=== PATIENT | male | born 1985 | race African-American/Black ===

== ENCOUNTER 2018-12-18 15:06 | Emergency (ER) | payer SELFPAY ==
--- NOTE | 2018-12-18 15:32 | RAD REPORT ---
EXAM DESCRIPTION: RAD - Ankle Right 3 View - 12/18/2018 3:21 pm CLINICAL HISTORY: Right ankle pain status post injury FINDINGS: No dislocation Soft tissue swelling about the lateral malleolus. A vague curvilinear density adjacent to the talus and lateral malleolus may represent a small avulsed fracture fragment
[2018-12-18] MEDS ORDERED: MORPHINE 4 MG/ML SYR ONE (15:51)
[2018-12-18] MEDS ORDERED: ONDANSETRON 4 MG/2 ML VIAL ONE (15:51)
[2018-12-18] MEDS ORDERED: KETOROLAC 30 MG/ML INJ ONE (15:51)
--- NOTE | 2018-12-18 15:56 | ER ---
Nurse's Notes [facility] Name: Miguel Mark Age: 33 yrs Sex: Male : 1985 Arrival Date: 12/18/2018 Time: 15:09 Bed 7 Private MD: Diagnosis: Dislocation of right ankle joint;Small avulsion fracture right ankle joint Presentation: 12/18 15:03 Presenting complaint: EMS states: playing basketball and rolled his right ankle, on EMS sv arrival right ankle was at a 90 degree angle. BP 135/80 HR-110, 18G R AC started and given Fentanyl 75 mcg IVP. Transition of care: patient was not received from another setting of care. Onset of symptoms was December 18, 2018. Risk Assessment: Do you want to hurt yourself or someone else? Patient reports no desire to harm self or others. Initial Sepsis Screen: Does the patient meet any 2 criteria? No. Patient's initial sepsis screen is negative. Does the patient have a suspected source of infection? No. Patient's initial sepsis screen is negative. Care prior to arrival: None. 15:03 Method Of Arrival: EMS: [facility] sv 15:03 Acuity: [place] 2 sv Triage Assessment: 15:03 General: Appears distressed, uncomfortable, Behavior is cooperative, appropriate for sv age, anxious. Pain: Complains of pain in right ankle Pain currently is 7 out of 10 on a pain scale. Neuro: Level of Consciousness is awake, alert, obeys commands, Oriented to person, place, time, situation. Respiratory: Respiratory effort is even, unlabored, Respiratory pattern is regular, symmetrical. Derm: Skin is normal. Musculoskeletal: Bony deformity noted of right ankle at a right angle. Historical: - Allergies: 15:17 No Known Allergies; sv - Home Meds: 15:17 None [Active]; sv - PMHx: 15:17 None; sv - PSHx: 15:17 None; sv - Immunization history:: Adult Immunizations up to date. - Social history:: Smoking status: Patient/guardian denies using tobacco. - Ebola Screening: : No symptoms or risks identified at this time. Screenin:18 Abuse screen: Denies threats or abuse. Denies injuries from another. Nutritional sv screening: No deficits noted. Tuberculosis screening: No symptoms or risk factors identified. Fall Risk None identified. Assessment: 15:22 Reassessment: Patient appears in no apparent distress at this time. Patient and/or sv family updated on plan of care and expected duration. Pain level reassessed. Patient is alert, oriented x 3, equal unlabored respirations, skin warm/dry/pink. Patient states symptoms have improved. 16:15 Reassessment: Patient appears in no apparent distress at this time. Patient and/or sv family updated on plan of care and expected duration. Pain level reassessed. Patient is alert, oriented x 3, equal unlabored respirations, skin warm/dry/pink. Patient states symptoms have improved. Cardiovascular: Capillary refill < 3 seconds is brisk in bilateral toes. Vital Signs: 15:03 BP 127 / 92; Pulse 93; Resp 20; Temp 97; Pulse Ox 99% ; Weight 88.45 kg; Height 6 ft. 3 sv in. (190.50 cm); Pain 7/10; 16:20 BP 122 / 88; Pulse 88; Resp 18; Temp 98; Pulse Ox 99% ; sv 16:37 Pain 3/10; sv 15:03 Body Mass Index 24.37 (88.45 kg, 190.50 cm) sv Vernell Coma Score: 15:03 Eye Response: spontaneous(4). Verbal Response: oriented(5). Motor Response: obeys sv commands(6). Total: 15. 16:15 Eye Response: spontaneous(4). Verbal Response: oriented(5). Motor Response: obeys sv commands(6). Total: 15. Trauma Score (Adult): 15:03 Eye Response: spontaneous(1); Verbal Response: oriented(1); Motor Response: obeys sv commands(2); Systolic BP: > 89 mm Hg(4); Respiratory Rate: 10 to 29 per min(4); Vernell Score: 15; Trauma Score: 12 16:15 Eye Response: spontaneous(1); Verbal Response: oriented(1); Motor Response: obeys sv commands(2); Systolic BP: > 89 mm Hg(4); Respiratory Rate: 10 to 29 per min(4); [place] Score: 15; Trauma Score: 12 ED Course: 15:03 Maintain EMS IV. Dressing intact. Site clean \T\ dry. Gauge \T\ site: 18G R AC. sv 15:06 Assist provider with reduction of right ankle using manipulation, Performed by Elvis Davis MD Patient tolerated poorly. 15:09 Patient arrived in ED. ss 15:11 Filiberto Veras, ESTEBAN is PHCP. pm1 15:11 Elvis Davis MD is Attending Physician. pm1 15:11 Shea Mendieta, BEKA is Primary Nurse. sv 15:17 Triage completed. sv 15:18 Arm band placed on. sv 15:18 Patient has correct armband on for positive identification. Bed in low position. Call sv light in reach. Side rails up X2. Adult w/ patient. Pulse ox on. NIBP on. 15:20 Ankle Right 3 View XRAY In Process Unspecified. EDMS 15:22 X-ray(s) taken. sv 15:57 Kirill Lyle MD is Referral Physician. pm1 16:15 Orthoglass splint: Posterior short lleg splint applied on right leg. stirrup splint sv applied on right leg. 16:35 Crutch training done. sv 16:43 IV discontinued, intact, bleeding controlled, No redness/swelling at site. Pressure sv dressing applied. Administered Medications: 15:40 Drug: Zofran 4 mg Route: IVP; Site: right antecubital; sv 16:36 Follow up: Response: No adverse reaction sv 15:42 Drug: morphine 4 mg Route: IVP; Site: right antecubital; sv 16:37 Follow up: Pain 3/10 Adult; Response: No adverse reaction; Pain is decreased sv 15:44 Drug: TORadol 30 mg Route: IVP; Site: right antecubital; sv 16:37 Follow up: Response: No adverse reaction sv Intake: 15:03 PO: 0ml; Total: 0ml. sv 16:15 PO: 0ml; Total: 0ml. sv Output: 15:03 Urine: 0ml; Total: 0ml. sv 16:15 Urine: 0ml; Total: 0ml. sv Outcome: 15:55 Discharge ordered by . pm1 16:42 Discharged to home ambulatory, with crutches, with friend. sv 16:42 Condition: stable 16:42 Condition: improved 16:42 Discharge instructions given to patient, Instructed on discharge instructions, follow up and referral plans. no drinking with medication, no driving heavy equipment, medication usage, crutch walking, splint care Demonstrated understanding of instructions, follow-up care, medications, crutch walking, splint care, Prescriptions given X 2. 16:43 Patient left the ED. sv Signatures: Dispatcher [employer] Shea Perea RN RN sv Smirch, Shelby, RN RN ss Filiberto Veras, FACILITIES PAINTER FACILITIES PAINTER pm1
--- NOTE | 2018-12-18 15:56 | EDPHYS ---
Physician Documentation [facility] Name: Miguel Mark Age: 33 yrs Sex: Male : 1985 Arrival Date: 12/18/2018 Time: 15:09 Bed 7 Private MD: ED Physician Elvis Davis HPI: 12/18 15:20 This 33 yrs old Black Male presents to ER via EMS with complaints of Right Ankle Injury.pm1 15:20 The patient presents with pain, that is acute. The complaints affect the right ankle. pm1 Onset: The symptoms/episode began/occurred just prior to arrival. Context: The problem was sustained at a sports field or court, resulted from Landing on another players foot, The mechanism of injury involved inversion of the affected ankle. The patient is unable to bear weight. The patient is not able to ambulate. Associated signs and symptoms: Pertinent positives: swelling, Pertinent negatives: numbness, tingling. Modifying factors: The symptoms are alleviated by nothing, the symptoms are aggravated by nothing. Severity of symptoms: in the emergency department the symptoms are unchanged. The patient has not experienced similar symptoms in the past. The patient has not recently seen a physician. Patient was playing basketball. Did a lay up and he landed on someone's foot and inverted his right foot. Historical: - Allergies: 15:17 No Known Allergies; sv - Home Meds: 15:17 None [Active]; sv - PMHx: 15:17 None; sv - PSHx: 15:17 None; sv - Immunization history:: Adult Immunizations up to date. - Social history:: Smoking status: Patient/guardian denies using tobacco. - Ebola Screening: : No symptoms or risks identified at this time. ROS: 15:20 Constitutional: Negative for fever, chills, and weight loss, Eyes: Negative for injury, pm1 pain, redness, and discharge, ENT: Negative for injury, pain, and discharge, Neck: Negative for injury, pain, and swelling, Cardiovascular: Negative for chest pain, palpitations, and edema, Respiratory: Negative for shortness of breath, cough, wheezing, and pleuritic chest pain, Abdomen/GI: Negative for abdominal pain, nausea, vomiting, diarrhea, and constipation, Back: Negative for injury and pain, : Negative for injury, bleeding, discharge, and swelling. 15:20 Skin: Negative for injury, rash, and discoloration, Neuro: Negative for headache, weakness, numbness, tingling, and seizure. 15:20 MS/extremity: Positive for deformity, pain, swelling, of the right ankle, Negative for paresthesias, tingling. Exam: 15:20 Constitutional: This is a well developed, well nourished patient who is awake, alert, pm1 and in no acute distress. Head/Face: Normocephalic, atraumatic. Eyes: Pupils equal round and reactive to light, extra-ocular motions intact. Lids and lashes normal. Conjunctiva and sclera are non-icteric and not injected. Cornea within normal limits. Periorbital areas with no swelling, redness, or edema. ENT: Nares patent. No nasal discharge, no septal abnormalities noted. Tympanic membranes are normal and external auditory canals are clear. Oropharynx with no redness, swelling, or masses, exudates, or evidence of obstruction, uvula midline. Mucous membranes moist. Neck: Trachea midline, no thyromegaly or masses palpated, and no cervical lymphadenopathy. Supple, full range of motion without nuchal rigidity, or vertebral point tenderness. No Meningismus. Chest/axilla: Normal chest wall appearance and motion. Nontender with no deformity. No lesions are appreciated. Cardiovascular: Regular rate and rhythm with a normal S1 and S2. No gallops, murmurs, or rubs. Normal PMI, no JVD. No pulse deficits. Respiratory: Lungs have equal breath sounds bilaterally, clear to auscultation and percussion. No rales, rhonchi or wheezes noted. No increased work of breathing, no retractions or nasal flaring. Abdomen/GI: Soft, non-tender, with normal bowel sounds. No distension or tympany. No guarding or rebound. No evidence of tenderness throughout. Back: No spinal tenderness. No costovertebral tenderness. Full range of motion. 15:20 Musculoskeletal/extremity: Extremities: grossly normal except: noted in the right ankle: dislocation, Pulses: noted to be 2+ in the right dorsalis pedis artery post reduction. 15:20 Skin: Appearance: normal except for affected area, injury, abrasion(s), very small abrasion noted, of the right ankle. Vital Signs: 15:03 BP 127 / 92; Pulse 93; Resp 20; Temp 97; Pulse Ox 99% ; Weight 88.45 kg; Height 6 ft. 3 sv in. (190.50 cm); Pain 7/10; 16:20 BP 122 / 88; Pulse 88; Resp 18; Temp 98; Pulse Ox 99% ; sv 16:37 Pain 3/10; sv 15:03 Body Mass Index 24.37 (88.45 kg, 190.50 cm) sv Vernell Coma Score: 15:03 Eye Response: spontaneous(4). Verbal Response: oriented(5). Motor Response: obeys sv commands(6). Total: 15. 16:15 Eye Response: spontaneous(4). Verbal Response: oriented(5). Motor Response: obeys sv commands(6). Total: 15. Trauma Score (Adult): 15:03 Eye Response: spontaneous(1); Verbal Response: oriented(1); Motor Response: obeys sv commands(2); Systolic BP: > 89 mm Hg(4); Respiratory Rate: 10 to 29 per min(4); [place] Score: 15; Trauma Score: 12 16:15 Eye Response: spontaneous(1); Verbal Response: oriented(1); Motor Response: obeys sv commands(2); Systolic BP: > 89 mm Hg(4); Respiratory Rate: 10 to 29 per min(4); [place] Score: 15; Trauma Score: 12 Procedures: 15:20 Reduction: of the right ankle, using traction, Patient tolerated well. Post reduction pm1 film - possible small avulsion fracture. 16:18 Splinting: Splint applied to right ankle using Orthoglass splint, applied by nurse. pm1 Examined by me, post splint application: neurovascular intact, 2+ distal pulses palpable, brisk capillary refill noted, Patient tolerated well, posterior and stirrup splint applied to right ankle. Patient able to tolerate splinting with foot at 90 degrees. MDM: 15:11 Patient medically screened. pm1 15:52 Data reviewed: vital signs. Data interpreted: Pulse oximetry: on room air is 99 %. pm1 Interpretation: normal. Counseling: I had a detailed discussion with the patient and/or guardian regarding: the historical points, exam findings, and any diagnostic results supporting the discharge/admit diagnosis, radiology results, the need for outpatient follow up, for definitive care, a orthopedic surgeon, to return to the emergency department if symptoms worsen or persist or if there are any questions or concerns that arise at home. 12/18 15:11 Order name: Ankle Right 3 View XRAY; Complete Time: 15:40 pm1 12/18 15:24 Order name: Splint - Ankle: Orthoglass: Stirrup; Complete Time: 16:36 pm1 12/18 15:24 Order name: Splint - Ankle: Posterior; Complete Time: 15:28 pm1 12/18 15:52 Order name: Crutches; Complete Time: 16:36 pm1 Administered Medications: 15:40 Drug: Zofran 4 mg Route: IVP; Site: right antecubital; sv 16:36 Follow up: Response: No adverse reaction sv 15:42 Drug: morphine 4 mg Route: IVP; Site: right antecubital; sv 16:37 Follow up: Pain 3/10 Adult; Response: No adverse reaction; Pain is decreased sv 15:44 Drug: TORadol 30 mg Route: IVP; Site: right antecubital; sv 16:37 Follow up: Response: No adverse reaction sv Disposition: 12/19 07:59 Co-signature as Attending Physician, Elvis Davis MD I agree with the assessment and liseth plan of care. Disposition: 12/18/18 15:55 Discharged to Home. Impression: Dislocation of right ankle joint, Small avulsion fracture right ankle joint. - Condition is Stable. - Discharge Instructions: Ankle Dislocation, Crutch Use. - Prescriptions for Naprosyn 500 mg Oral Tablet - take 1 tablet by ORAL route 2 times per day take with food; 30 tablet. Tylenol- Codeine #3 300-30 mg Oral Tablet - take 2 tablet by ORAL route every 6 hours As needed; 30 tablet. - Work release form, Medication Reconciliation Form, Thank You Letter, Antibiotic Education, Prescription Opioid Use form. - Follow up: Emergency Department; When: As needed; Reason: Worsening of condition. Follow up: Private Physician; When: 2 - 3 days; Reason: Recheck today's complaints, Continuance of care, Re-evaluation by your physician. Follow up: Kirill Lyle MD; When: 2 - 3 days; Reason: Recheck today's complaints, Continuance of care, Re-evaluation by your physician. - Problem is new. - Symptoms have improved. Signatures: Dispatcher [employer] EDShea Zhou RN RN Elvis Sotomayor MD MD cha Marinas, Patrick, RE RECORDING MIXER RE RECORDING MIXER pm1 Corrections: (The following items were deleted from the chart) 12/18 15:57 15:55 12/18/2018 15:55 Discharged to Home. Impression: Dislocation of right ankle pm1 joint. Condition is Stable. Forms are Medication Reconciliation Form, Thank You Letter, Antibiotic Education, Prescription Opioid Use. Follow up: Emergency Department; When: As needed; Reason: Worsening of condition. Follow up: Private Physician; When: 2 - 3 days; Reason: Recheck today's complaints, Continuance of care, Re-evaluation by your physician. Problem is new. Symptoms have improved. pm1 15:58 15:57 12/18/2018 15:55 Discharged to Home. Impression: Dislocation of right ankle pm1 joint. Condition is Stable. Discharge Instructions: Ankle Dislocation, Crutch Use. Prescriptions for Naprosyn 500 mg Oral Tablet - take 1 tablet by ORAL route 2 times per day take with food; 30 tablet, Tylenol-Codeine #3 300-30 mg Oral Tablet - take 2 tablet by ORAL route every 6 hours As needed; 30 tablet. and Forms are Medication Reconciliation Form, Thank You Letter, Antibiotic Education, Prescription Opioid Use. Follow up: Emergency Department; When: As needed; Reason: Worsening of condition. Follow up: Private Physician; When: 2 - 3 days; Reason: Recheck today's complaints, Continuance of care, Re-evaluation by your physician. Follow up: Kirill Lyle; When: 2 - 3 days; Reason: Recheck today's complaints, Continuance of care, Re-evaluation by your physician. Problem is new. Symptoms have improved. pm1 16:43 15:58 12/18/2018 15:55 Discharged to Home. Impression: Dislocation of right ankle sv joint; Small avulsion fracture right ankle joint. Condition is Stable. Discharge Instructions: Ankle Dislocation, Crutch Use. Prescriptions for Naprosyn 500 mg Oral Tablet - take 1 tablet by ORAL route 2 times per day take with food; 30 tablet, Tylenol-Codeine #3 300-30 mg Oral Tablet - take 2 tablet by ORAL route every 6 hours As needed; 30 tablet. and Forms are Medication Reconciliation Form, Thank You Letter, Antibiotic Education, Prescription Opioid Use. Follow up: Emergency Department; When: As needed; Reason: Worsening of condition. Follow up: Private Physician; When: 2 - 3 days; Reason: Recheck today's complaints, Continuance of care, Re-evaluation by your physician. Follow up: Kirill Lyle; When: 2 - 3 days; Reason: Recheck today's complaints, Continuance of care, Re-evaluation by your physician. Problem is new. Symptoms have improved. pm1
== END 2018-12-18 16:43 | disposition home or self-care (01) ==
LOC: ER 15:06
PROC: 0SSFXZZ Reposition Right Ankle Joint, External Approach (ICD-10-PCS; principal; 2018-12-18)
DX: S93.04XA Dislocation of right ankle joint, initial encounter (principal); S82.891A Other fracture of right lower leg, initial encounter for closed fracture; Y93.67 Activity, basketball; Y92.39 Other specified sports and athletic area as the place of occurrence of the external cause
CPT/HCPCS: 96374; 96375; 99284; J2405

== ENCOUNTER 2020-06-29 02:06 | Emergency (ER) | payer SELFPAY ==
--- NOTE | 2020-06-29 02:29 | EDPHYS ---
Physician Documentation [facility] Name: Miguel Mark Age: 35 yrs Sex: Male : 1985 Arrival Date: 06/29/2020 Time: 02:06 Bed 13 Private MD: ED Physician Raj Johns HPI: 06/29 02:36 This 35 yrs old Black Male presents to ER via Ambulatory with complaints of Toothache. tw4 02:36 The patient presents with pain. The problem is located in the upper right second molar tw4 and upper right first molar. Onset: The symptoms/episode began/occurred today. Duration: The symptoms are continuous, and are unchanged since they started. Modifying factors: The symptoms are alleviated by nothing, the symptoms are aggravated by nothing. The patient has not experienced similar symptoms in the past. Historical: - Allergies: 02:30 No Known Allergies; ea - Home Meds: 02:30 None [Active]; ea - PMHx: 02:30 None; ea - PSHx: 02:30 None; ea - Immunization history:: Adult Immunizations up to date. - Social history:: Smoking status: Patient denies any tobacco usage or history of. ROS: 02:36 Constitutional: Negative for fever, chills, and weight loss, Cardiovascular: Negative tw4 for chest pain, palpitations, and edema, Respiratory: Negative for shortness of breath, cough, wheezing, and pleuritic chest pain, Abdomen/GI: Negative for abdominal pain, nausea, vomiting, diarrhea, and constipation, Back: Negative for injury and pain, MS/Extremity: Negative for injury and deformity, Skin: Negative for injury, rash, and discoloration, Neuro: Negative for headache, weakness, numbness, tingling, and seizure. 02:36 ENT: Positive for dental pain, Negative for ear pain, foreign body sensation, Gum pain hearing loss, pulling at ears, Teeth pain tinnitus, nasal discharge, rhinorrhea, sinus congestion, sinus pain, sore throat. Exam: 02:36 Constitutional: This is a well developed, well nourished patient who is awake, alert, tw4 and in no acute distress. Head/Face: Normocephalic, atraumatic. Neck: Trachea midline, no thyromegaly or masses palpated, and no cervical lymphadenopathy. Supple, full range of motion without nuchal rigidity, or vertebral point tenderness. No Meningismus. Chest/axilla: Normal chest wall appearance and motion. Nontender with no deformity. No lesions are appreciated. Cardiovascular: Regular rate and rhythm with a normal S1 and S2. No gallops, murmurs, or rubs. Normal PMI, no JVD. No pulse deficits. Respiratory: Lungs have equal breath sounds bilaterally, clear to auscultation and percussion. No rales, rhonchi or wheezes noted. No increased work of breathing, no retractions or nasal flaring. Abdomen/GI: Soft, non-tender, with normal bowel sounds. No distension or tympany. No guarding or rebound. No evidence of tenderness throughout. Back: No spinal tenderness. No costovertebral tenderness. Full range of motion. 02:36 ENT: Dental exam: dental caries, specifically in the upper right second molar (#2) and upper right first molar (#3). 02:36 ENT: Mouth: is normal, Posterior pharynx: is normal, Voice: is normal. Vital Signs: 02:30 BP 157 / 129; Pulse 98; Resp 20; Temp 98.6; Pulse Ox 100% on R/A; Weight 89.81 kg; ea Height 6 ft. 2 in. (187.96 cm); Pain 10/10; 02:39 BP 121 / 98; Pulse 93; Resp 18; Pulse Ox 96% ; ea 02:30 Body Mass Index 25.42 (89.81 kg, 187.96 cm) ea MDM: 02:18 Patient medically screened. tw4 02:36 Differential diagnosis: dental caries, dental abscess, pericoronitis. Data reviewed: tw4 vital signs, nurses notes. Data interpreted: Pulse oximetry: Interpretation: normal. Counseling: I had a detailed discussion with the patient and/or guardian regarding: the historical points, exam findings, and any diagnostic results supporting the discharge/admit diagnosis. Special discussion: I discussed with the patient/guardian in detail that at this point there is no indication for admission to the hospital. It is understood, however, that if the symptoms persist or worsen the patient needs to return immediately for re-evaluation. Administered Medications: 02:30 Drug: [place] 5 mg-325 mg 1 tabs Route: PO; ea 02:50 Follow up: Response: No adverse reaction ea 02:42 Drug: Ibuprofen 800 mg Route: PO; ea 02:50 Follow up: Response: No adverse reaction ea Disposition: 06/29/20 02:28 Discharged to Home. Impression: Dental caries, unspecified. - Condition is Stable. - Discharge Instructions: Dental Caries, Adult, Dental Pain. - Prescriptions for Cleocin 300 mg Oral Capsule - take 1 capsule by ORAL route every 6 hours for 10 days; 40 capsule. Ibuprofen 800 mg Oral Tablet - take 1 tablet by ORAL route every 8 hours As needed take with food; 30 tablet. Tylenol- Codeine #3 300-30 mg Oral Tablet - take 2 tablet by ORAL route every 6 hours As needed; 6 tablet. - Medication Reconciliation Form, Thank You Letter, Antibiotic Education, Prescription Opioid Use form. - Follow up: Private Physician; When: Upon discharge from the Emergency Department; Reason: Recheck today's complaints, Continuance of care, Re-evaluation by your physician. - Problem is new. - Symptoms have improved. Signatures: Roula Liu RN RN ea Wadley, Terrence, MD MD tw4 Corrections: (The following items were deleted from the chart) 02:52 02:28 06/29/2020 02:28 Discharged to Home. Impression: Dental caries, unspecified. ea Condition is Stable. Forms are Medication Reconciliation Form, Thank You Letter, Antibiotic Education, Prescription Opioid Use. Follow up: Private Physician; When: Upon discharge from the Emergency Department; Reason: Recheck today's complaints, Continuance of care, Re-evaluation by your physician. Problem is new. Symptoms have improved. tw4
[2020-06-29] MEDS ORDERED: HYDROCODONE/APAP 5/325 MG TAB ONE (02:39)
[2020-06-29] MEDS ORDERED: IBUPROFEN 400 MG TAB ONE (02:51)
--- NOTE | 2020-06-29 02:52 | ER ---
Nurse's Notes [facility] Name: Miguel Mark Age: 35 yrs Sex: Male : 1985 Arrival Date: 06/29/2020 Time: 02:06 Bed 13 Private MD: Diagnosis: Dental caries, unspecified Presentation: 06/29 02:30 Chief complaint: Patient states: Reports tooth pain that started about an hour ago, pt ea reports the top right side of his mouth hurts 10/10 pain. Coronavirus screen: At this time, the client does not indicate any symptoms associated with coronavirus-19. Ebola Screen: No symptoms or risks identified at this time. Initial Sepsis Screen: Does the patient meet any 2 criteria? No. Patient's initial sepsis screen is negative. Does the patient have a suspected source of infection? No. Patient's initial sepsis screen is negative. Risk Assessment: Do you want to hurt yourself or someone else? Patient reports no desire to harm self or others. Onset of symptoms was June 29, 2020. 02:30 Method Of Arrival: Ambulatory ea 02:30 Acuity: [place] 5 ea Historical: - Allergies: 02:30 No Known Allergies; ea - Home Meds: 02:30 None [Active]; ea - PMHx: 02:30 None; ea - PSHx: 02:30 None; ea - Immunization history:: Adult Immunizations up to date. - Social history:: Smoking status: Patient denies any tobacco usage or history of. Screenin:29 Abuse screen: Denies threats or abuse. Nutritional screening: No deficits noted. ea Tuberculosis screening: No symptoms or risk factors identified. Fall Risk No IV (0 pts). Assessment: 02:33 General: Appears uncomfortable, Behavior is restless. General: Appears Behavior is ea crying. Pain:. Neuro: Level of Consciousness is awake, alert, obeys commands, Oriented to person, place, time, situation. Cardiovascular: Patient's skin is warm and dry. Respiratory: Airway is patent Respiratory effort is even, unlabored, Respiratory pattern is regular, symmetrical. EENT: Reports pain in right cheek Pain is 10 out of 10 on a pain scale. Derm: Skin is pink, warm \T\ dry. 02:50 Reassessment: Patient and/or family updated on plan of care and expected duration. Pain ea level reassessed. Patient is alert, oriented x 3, equal unlabored respirations, skin warm/dry/pink. Discharge instruction given to patient verbalized the understanding of instruction. Pt left ED ambulatory tolerating well. Vital Signs: 02:30 BP 157 / 129; Pulse 98; Resp 20; Temp 98.6; Pulse Ox 100% on R/A; Weight 89.81 kg; ea Height 6 ft. 2 in. (187.96 cm); Pain 10/10; 02:39 BP 121 / 98; Pulse 93; Resp 18; Pulse Ox 96% ; ea 02:30 Body Mass Index 25.42 (89.81 kg, 187.96 cm) ea ED Course: 02:06 Patient arrived in ED. am2 02:18 Raj Johns MD is Attending Physician. tw 02:29 Roula Liu RN is Primary Nurse. ea 02:32 Triage completed. ea 02:32 Arm band placed on right wrist. Patient placed in an exam room, on a stretcher, on ea pulse oximetry. 02:32 Patient has correct armband on for positive identification. Bed in low position. Call ea light in reach. Side rails up X 1. Pulse ox on. NIBP on. 02:42 No provider procedures requiring assistance completed. Patient did not have IV access ea during this emergency room visit. Administered Medications: 02:30 Drug: Wayne 5 mg-325 mg 1 tabs Route: PO; ea 02:50 Follow up: Response: No adverse reaction ea 02:42 Drug: Ibuprofen 800 mg Route: PO; ea 02:50 Follow up: Response: No adverse reaction ea Outcome: 02:28 Discharge ordered by . tw4 02:51 Discharged to home ambulatory, with family. ea 02:51 Condition: stable 02:51 Discharge instructions given to patient, Instructed on discharge instructions, follow up and referral plans. medication usage, Demonstrated understanding of instructions, follow-up care, medications, Prescriptions given X 3. 02:52 Patient left the ED. ea Signatures: Marci Pizarro am2 Roula Liu, RN RN Raj Quick MD MD tw
[2020-07-03 12:48] VITALS: TEMP 98.6
[2020-07-03 12:49] VITALS: BP 121/98; O2SAT 96
== END 2020-06-29 02:52 | disposition home or self-care (01) ==
LOC: ER 02:06
DX: K02.9 Dental caries, unspecified (principal)
CPT/HCPCS: 99283

== ENCOUNTER 2022-12-11 21:57 | Emergency (ER) | payer SELFPAY ==
--- NOTE | 2022-12-11 22:52 | ER ---
Nurse's Notes [facility] Name: Miguel Mark Age: 37 yrs Sex: Male : 1985 Arrival Date: 12/11/2022 Time: 21:57 Bed 9 Private MD: Diagnosis: Disorder of teeth and supporting structures, unspecified Presentation: 12/11 22:42 Chief complaint: Patient states: Patient C/O right lower wisdom tooth pain of 10,onset pf1 yesterday. Patient stated took Ibuprofen 600mg at 1 hour ago. Coronavirus screen: Vaccine status: Patient reports being unvaccinated. Client denies travel out of the [place] in the last 14 days. At this time, the client does not indicate any symptoms associated with coronavirus-19. Ebola Screen: Patient negative for fever greater than or equal to 101.5 degrees Fahrenheit, and additional compatible Ebola Virus Disease symptoms. Initial Sepsis Screen: Does the patient meet any 2 criteria? No. Patient's initial sepsis screen is negative. Does the patient have a suspected source of infection? No. Patient's initial sepsis screen is negative. Risk Assessment: Do you want to hurt yourself or someone else? Patient reports no desire to harm self or others. 22:42 Method Of Arrival: Ambulatory pf1 22:42 Acuity: [place] 4 pf1 Historical: - Allergies: 22:46 No Known Allergies; pf1 - Home Meds: 22:46 None [Active]; pf1 - PMHx: 22:46 None; pf1 - Immunization history:: Adult Immunizations up to date, Client reports having NOT received the Covid vaccine. Last tetanus immunization: < 10 years ago Flu vaccine is up to date. - Social history:: Smoking status: Patient/guardian denies using tobacco, the patient reports quitting approximately 2 years ago, Patient/guardian denies using alcohol, street drugs. Screenin:42 [facility] ED Fall Risk Assessment (Adult) History of falling in the last 3 months, pf1 including since admission No falls in past 3 months (0 pts) Confusion or Disorientation No (0 pts) Intoxicated or Sedated No (0 pts) Impaired Gait No (0 pts) Mobility Assist Device Used No (0 pt) Altered Elimination No (0 pt) Score/Fall Risk Level 0 - 2 = Low Risk Oriented to surroundings, Maintained a safe environment, Educated pt \T\ family on fall prevention, incl call for assistance when getting out of bed, Assessed \T\ reinforced patient's understanding of fall precautions, Provided non-skid footwear, Hourly rounding (assess needs \T\ fall precautionary measures) done, Used ambulatory aids as needed (educated on \T\ assisted with), Used gait belt as appropriate. 22:42 Abuse screen: Denies threats or abuse. Nutritional screening: No deficits noted. pf1 Tuberculosis screening: No symptoms or risk factors identified. Assessment: 22:45 General: Appears in no apparent distress. uncomfortable, well groomed, well developed, pf1 Behavior is cooperative, appropriate for age, anxious, restless. 22:45 Pain: Complains of pain in right lower mouth pain of 10. Neuro: No deficits noted. pf1 Level of Consciousness is awake, alert, obeys commands, Oriented to person, place, time, situation. Cardiovascular: No deficits noted. Capillary refill < 3 seconds Patient's skin is warm and dry. Respiratory: No deficits noted. Airway is patent Trachea midline Respiratory effort is even, unlabored, Respiratory pattern is regular, symmetrical. GI: No deficits noted. No signs and/or symptoms were reported involving the gastrointestinal system. : No deficits noted. No signs and/or symptoms were reported regarding the genitourinary system. EENT: Reports pain in right lower mouth pain of wisdom tooth. Derm: No deficits noted. No signs and/or symptoms reported regarding the dermatologic system. Musculoskeletal: No deficits noted. No signs and/or symptoms reported regarding the musculoskeletal system. Vital Signs: 22:42 BP 139 / 101; Pulse 61; Resp 18; Temp 97.8; Pulse Ox 99% ; Weight 90.72 kg; Height 6 pf1 ft. 2 in. ; Pain 10/10; 22:42 Body Mass Index 25.68 (90.72 kg, 187.96 cm) pf1 22:42 Pain Scale: Adult pf1 ED Course: 21:59 Patient arrived in ED. [id number] 21:59 Elvis Mays PA is PHCP. cp 21:59 Bal Mccabe DO is Attending Physician. cp 22:42 Arm band placed on. pf1 22:42 Patient has correct armband on for positive identification. Bed in low position. Call pf1 light in reach. 22:45 Kayla Breaux, RN is Primary Nurse. aa9 22:46 Triage completed. pf1 22:51 Preston Barker DDS is Referral Physician. cp 23:20 No provider procedures requiring assistance completed. pf1 23:20 Patient did not have IV access during this emergency room visit. pf1 Administered Medications: 22:57 Drug: Clindamycin PO 300 mg Route: PO; aa9 23:20 Follow up: Response: No adverse reaction; Marked relief of symptoms pf1 22:57 Drug: morphine IM 6 mg Route: IM; Site: right deltoid; aa9 23:20 Follow up: Response: No adverse reaction; Marked relief of symptoms; RASS: Alert and pf1 Calm (0) 22:57 Drug: Ketorolac IM 30 mg Route: IM; Site: left deltoid; aa9 23:20 Follow up: Response: No adverse reaction; Marked relief of symptoms; Pain is decreased pf1 Medication: 22:42 VIS not applicable for this client. pf1 Outcome: 22:52 Discharge ordered by MD. cp 23:20 Discharged to home ambulatory, with family. pf1 23:20 Condition: improved 23:20 Discharge instructions given to patient, Instructed on discharge instructions, follow up and referral plans. Demonstrated understanding of instructions, follow-up care, medications, Prescriptions given X 2. 23:29 Patient left the ED. pf1 Signatures: Elvis Mays PA PA Maryjo Briones [email or web address] Kayla Breaux, RN RN aa9 Dora Brothers RN RN pf1
--- NOTE | 2022-12-11 22:52 | EDPHYS ---
Physician Documentation [facility] Name: Miguel Mark Age: 37 yrs Sex: Male : 1985 Arrival Date: 12/11/2022 Time: 21:57 Bed 9 Private MD: ED Physician Bal Mccabe HPI: 12/11 22:20 This 37 yrs old Black Male presents to ER via Ambulatory with complaints of Jaw Pain. cp 22:20 The patient presents with pain. The problem is located in the right lower jaw. Onset: cp The symptoms/episode began/occurred 3 day(s) ago, and became worse today. 22:20 Duration: The symptoms are continuous, and are markedly worse than the original cp presentation. Associated signs and symptoms: Pertinent negatives: anorexia, dysphagia, fever, inability to eat, vomiting. Severity of symptoms: in the emergency department the symptoms are unchanged, despite home interventions. Historical: - Allergies: 22:46 No Known Allergies; pf1 - Home Meds: 22:46 None [Active]; pf1 - PMHx: 22:46 None; pf1 - Immunization history:: Adult Immunizations up to date, Client reports having NOT received the Covid vaccine. Last tetanus immunization: < 10 years ago Flu vaccine is up to date. - Social history:: Smoking status: Patient/guardian denies using tobacco, the patient reports quitting approximately 2 years ago, Patient/guardian denies using alcohol, street drugs. ROS: 22:25 Constitutional: Negative for body aches, chills, fever, poor PO intake. cp 22:25 Eyes: Negative for injury, pain, redness, and discharge. cp 22:25 ENT: Positive for dental pain, Negative for drainage from ear(s), ear pain, sore throat, difficulty swallowing, difficulty handling secretions. 22:25 Respiratory: Negative for cough, shortness of breath, wheezing. 22:25 Abdomen/GI: Negative for abdominal pain, vomiting, diarrhea, constipation. 22:25 Skin: Negative for cellulitis, rash. 22:25 Neuro: Negative for altered mental status, dizziness, headache, weakness. 22:25 All other systems are negative. Exam: 22:30 Constitutional: The patient appears in no acute distress, alert, awake, non-toxic, well cp developed, well nourished, in obvious pain, uncomfortable. 22:30 Head/Face: Normocephalic, atraumatic. cp 22:30 Eyes: Periorbital structures: appear normal, Conjunctiva: normal, no exudate, no injection, Sclera: no appreciated abnormality, Lids and lashes: appear normal, bilaterally. 22:30 ENT: External ear(s): are unremarkable, Ear canal(s): are normal, clear, TM's: bulging, is not appreciated, bilaterally, dullness, bilaterally, erythema, is not appreciated, bilaterally, Nose: is normal, Mouth: Lips: moist, Oral mucosa: pink and intact, moist, Posterior pharynx: Airway: no evidence of obstruction, patent, Tonsils: are normal in appearance, swelling, is not appreciated, erythema, is not appreciated, exudate, is not appreciated, Dental exam: abscess, is not appreciated, fractured teeth are noted, specifically the lower right third molar (#32), pain, that is severe, specifically in the lower right third molar (#32), Voice: is normal. 22:30 Neck: ROM/movement: is normal, is supple, without pain, no range of motions limitations, no meningismus, no nuchal rigidity, Lymph nodes: no appreciated lymphadenopathy. 22:30 Chest/axilla: Inspection: normal. 22:30 Cardiovascular: Rate: normal, Rhythm: regular. 22:30 Respiratory: the patient does not display signs of respiratory distress, Respirations: normal, no use of accessory muscles, no retractions, labored breathing, is not present, Breath sounds: are clear throughout, no decreased breath sounds, no stridor, no wheezing. 22:30 Abdomen/GI: Exam negative for discomfort, distension, guarding, Inspection: abdomen appears normal. 22:30 Skin: cellulitis, is not appreciated, no rash present. Vital Signs: 22:42 BP 139 / 101; Pulse 61; Resp 18; Temp 97.8; Pulse Ox 99% ; Weight 90.72 kg; Height 6 pf1 ft. 2 in. ; Pain 10/10; 22:42 Body Mass Index 25.68 (90.72 kg, 187.96 cm) pf1 22:42 Pain Scale: Adult pf1 MDM: 22:30 Differential diagnosis: dental caries, dental abscess, pericoronitis. cp 22:46 Patient medically screened. cp 22:51 Data reviewed: vital signs, nurses notes. cp 22:51 Consideration of Admission/Observation Escalation of care including cp admission/observation considered. Test considered but Not performed: Labs: cbc, bmp. CT: facial bones. Counseling: I had a detailed discussion with the patient and/or guardian regarding: the historical points, exam findings, and any diagnostic results supporting the discharge/admit diagnosis, the need for outpatient follow up, for definitive care, a dentist, to return to the emergency department if symptoms worsen or persist or if there are any questions or concerns that arise at home. Response to treatment: the patient's symptoms have markedly improved after treatment, and as a result, I will discharge patient. Administered Medications: 22:57 Drug: Clindamycin PO 300 mg Route: PO; aa9 23:20 Follow up: Response: No adverse reaction; Marked relief of symptoms pf1 22:57 Drug: morphine IM 6 mg Route: IM; Site: right deltoid; aa9 23:20 Follow up: Response: No adverse reaction; Marked relief of symptoms; RASS: Alert and pf1 Calm (0) 22:57 Drug: Ketorolac IM 30 mg Route: IM; Site: left deltoid; aa9 23:20 Follow up: Response: No adverse reaction; Marked relief of symptoms; Pain is decreased pf1 Disposition Summary: 12/11/22 22:52 Discharge Ordered Location: Home cp Problem: new cp Symptoms: have improved cp Condition: Stable cp Diagnosis - Disorder of teeth and supporting structures, unspecified cp Followup: cp - With: Preston Barker DDS - When: 2 - 3 days - Reason: Recheck today's complaints Discharge Instructions: - Discharge Summary Sheet cp - Dental Pain cp Forms: - Medication Reconciliation Form cp - Thank You Letter cp - Antibiotic Education cp - Prescription Opioid Use cp Prescriptions: - Clindamycin HCl 300 mg Oral Capsule - take 1 capsule by ORAL route every 6 hours for 10 days; 40 capsule; Refills: 0, cp Product Selection Permitted - Diclofenac Sodium 75 mg Oral Tablet Sustained Release - take 1 tablet by ORAL route 2 times per day; 30 tablet; Refills: 0, Product cp Selection Permitted Signatures: Elvis Mays PA PA cp Avalos, Aylin RN RN aa9 Dora Brothers RN RN pf1
[2022-12-11] MEDS ORDERED: MORPHINE 2 MG/ML SYR ONE (22:55)
[2022-12-11] MEDS ORDERED: MORPHINE 4 MG/ML SYR ONE (22:56)
[2022-12-11] MEDS ORDERED: KETOROLAC 30 MG/ML INJ ONE (22:56)
[2022-12-11 23:33] VITALS: BP 139/101; TEMP 97.8; O2SAT 99
== END 2022-12-11 23:29 | disposition home or self-care (01) ==
LOC: ER 21:57
DX: K08.89 Other specified disorders of teeth and supporting structures (principal)
CPT/HCPCS: 96372; 99284; J2270